=== PATIENT | female | born 1995 | race Caucasian/White ===

== ENCOUNTER 2020-04-12 23:56 | Emergency (ER) | payer OTHER ==
[~2020-04-12 23:56] MED LIST: BENADRYL25 MG PO; CLARITIN10 M2 PO; COLACE 100MG C100 MG PO; IBUPROFEN600 MG PO; LORTAB 5-325 M1 EACH PO; PRENATAL VITAM1 EAC8 PO
[2020-04-13 00:33] LABS: HEMOGLOBIN 13.7 gm/dl (12.3-15.3); RED BLOOD COUNT 4.46 M/UL (4.00-5.10); WHITE BLOOD COUNT 7.3 K/UL (4.5-11.0)
[2020-04-13 00:52] LABS: BUN/CREATININE RATIO 12 (0-10)
== END 2020-04-13 02:48 | disposition home or self-care (01) ==
LOC: ER1 23:56
PROVIDERS: Family Medicine
DX: R51.9 Headache, unspecified (principal); R11.0 Nausea; Z88.2 Allergy status to sulfonamides; Z20.822 Contact with and (suspected) exposure to COVID-19
CPT/HCPCS: 80053; 81001; 83605; 83735; 84439; 84443; 85025; 99284; U0002